=== PATIENT | male | born 1975 | race American Indian/Alaskan Native ===

== ENCOUNTER 2018-02-09 19:08 | Emergency (ER) | payer OTHER ==
[2018-02-09] MEDS ORDERED: TORADOL IM ONE (22:59)
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
--- NOTE | 2018-02-09 23:43 | XRay Report ---
FINAL REPORT PROCEDURE: Cervical spine. TECHNIQUE: Three views. HISTORY: Cervical spine pain. COMPARISON: No prior studies are available for comparison. FINDINGS: The cervical vertebrae have normal height and satisfactory alignment. There are no fractures. There is no subluxation. The disc spaces appear adequate. There is a cervical thoracic scoliosis. The prevertebral soft tissues have normal thickness. IMPRESSION: No evidence of acute disease.
--- NOTE | 2018-02-09 23:47 | XRay Report ---
FINAL REPORT PROCEDURE: Right hand. TECHNIQUE: Three views. HISTORY: Right hand pain. COMPARISON: No prior studies are available for comparison. FINDINGS: The bones appear intact without fracture or dislocation. The joint spaces appear normal. The soft tissues are unremarkable. IMPRESSION: Normal study.
--- NOTE | 2018-02-09 23:49 | XRay Report ---
FINAL REPORT PROCEDURE: Lumbar spine. TECHNIQUE: Three views. HISTORY: Lower back pain. COMPARISON: No prior studies are available for comparison. FINDINGS: The lumbar vertebrae have normal height and alignment. There are no fractures. There is no spondylolisthesis. The disc spaces are well maintained. The patient has had a posterior surgical fusion at L4, L5 and S1. The sacrum and sacroiliac joints are unremarkable as far as visualized. IMPRESSION: Previous lumbar fusion. No evidence of acute disease.
[2018-02-10 00:06] VITALS: BP 120/74
== END 2018-02-10 00:06 | disposition home or self-care (01) ==
LOC: ED 19:08
DX: S13.4XXA Sprain of ligaments of cervical spine, initial encounter (principal); S39.012A Strain of muscle, fascia and tendon of lower back, initial encounter; S66.911A Strain of unspecified muscle, fascia and tendon at wrist and hand level, right hand, initial encounter; V49.49XA Driver injured in collision with other motor vehicles in traffic accident, initial encounter; Y93.89 Activity, other specified; Y99.8 Other external cause status; Y92.488 Other paved roadways as the place of occurrence of the external cause
CPT/HCPCS: 72040; 72100; 73130; 96372; 99283; J1885